=== PATIENT | female | born 1945 | race Caucasian/White ===

== ENCOUNTER 2017-07-10 20:44 | Inpatient (IN) | payer OTHER ==
[2017-07-10] MEDS ORDERED: SODIUM CHLORIDE 0.9% 1L BAG IV* (22:46)
[2017-07-10] MEDS: SOD CHLORIDE 0.9% 500 ML IV (22:56)
[2017-07-10] MEDS: ONDANSETRON 4 MG INJ IV (23:03)
[2017-07-10] MEDS: ACETAMINOPHEN 325 MG TAB PO (23:03)
[2017-07-10 23:08] LABS: ABNORMAL IP MESSAGE 1; HEMATOCRIT 29.7 % (37.0-47.0); HEMOGLOBIN 9.7 g/dl (12.0-16.0); MEAN CORPUSCULAR HEMOGLOBIN 30.6 pg (29.0-33.0); MEAN CORPUSCULAR HGB CONC 32.7 g/dl (32.0-37.0); MEAN CORPUSCULAR VOLUME 93.7 fl (82.0-101.0); MEAN PLATELET VOLUME 9.3 fl (7.4-10.4); RED BLOOD COUNT 3.17 10^6/ul (4.20-5.40); RED CELL DISTRIBUTION WIDTH 15.9 % (11.5-14.5)
[2017-07-10 23:11] LABS: ADD MAN DIFF? YES; PLATELET COUNT 70 10^3/UL (140-415); POSITIVE DIFF @See below
[2017-07-10 23:19] LABS: INR 1.05; PROTIME 13.8 Sec (11.9-14.9); PT RATIO 1.1
[2017-07-10 23:21] LABS: PARTIAL THROMBOPLASTIN TIME 25.7 Sec (25.0-35.0)
[2017-07-10 23:23] LABS: ALANINE AMINOTRANSFERASE 17 IU/L (13-69); ALBUMIN 3.4 g/dl (3.3-4.9); ALBUMIN/GLOBULIN RATIO 0.87; ALKALINE PHOSPHATASE 157 IU/L (42-121); ANION GAP 15 (8-16); ASPARTATE AMINO TRANSFERASE 20 IU/L (15-46); BLOOD UREA NITROGEN 27 mg/dl (7-20); CARBON DIOXIDE 21 mmol/L (21-31); CHLORIDE 103 mmol/L (97-110); CREATININE 1.51 mg/dl (0.44-1.00); GLUCOSE 166 mg/dl (70-220); POTASSIUM 4.3 mmol/L (3.5-5.1); SODIUM 135 mmol/L (135-144); TOTAL PROTEIN 7.3 g/dl (6.1-8.1)
[2017-07-10 23:27] LABS: LACTIC ACID 2.9 mmol/L (0.5-2.0)
[2017-07-10 23:34] LABS: TROPONIN-I 0.031 ng/ml (0.00-0.12)
[2017-07-10 23:56] LABS: B-TYPE NATRIURETIC PEPTIDE 1370 PG/ML (0-125)
[2017-07-11 00:18] LABS: ADD UMIC YES; UR AMORPHOUS CRYSTAL FEW /HPF (NONE SEEN); UR ASCORBIC ACID NEGATIVE (NEGATIVE); UR BACTERIA FEW /HPF (NONE SEEN); UR BILIRUBIN (Dip) 1+ mg/dL (NEGATIVE); UR BLOOD (Dip) NEGATIVE (NEGATIVE); UR CLARITY CLOUDY (CLEAR); UR COLOR AMBER (YELLOW); UR GLUCOSE (Dip) NEGATIVE (NEGATIVE); UR GRANULAR CAST FEW /HPF (NONE SEEN); UR KETONES (Dip) NEGATIVE (NEGATIVE); UR LEUKOCYTE ESTERASE (Dip) 1+ Leu/ul (NEGATIVE); UR MUCUS FEW /HPF (NONE SEEN); UR NITRITE (Dip) NEGATIVE (NEGATIVE); UR RBC 2 /HPF (0-5); UR SPECIFIC GRAVITY (Dip) 1.019 (1.003-1.030); UR SQUAMOUS EPITHELIAL CELL FEW /HPF (FEW); UR TOTAL PROTEIN (Dip) 2+ mg/dl (NEGATIVE); UR UROBILINOGEN (Dip) 2+ mg/dL (NEGATIVE); UR WBC 27 /HPF (0-5)
[2017-07-11 00:21] LABS: BAND NEUTROPHILS #M 4.2 10^3/ul (0.0-0.6); BAND NEUTROPHILS % (M) 28 % (0-4); EOSINOPHILS % (M) 1 % (0-7); LYMPHOCYTES #M 0.7 10^3/ul (0.8-2.9); LYMPHOCYTES % (M) 5 % (15-51); MONOCYTE #M 0.7 10^3/ul (0.3-0.9); MONOCYTES % (M) 5 % (0-11); PLATELET ESTIMATE DECREASED; POLYCHROMASIA 2+ (0-0); REACTIVE LYMPHOCYTES #M 0.1 10^3/ul (0.0-0.0); REACTIVE LYMPHOCYTES% (M) 1 % (0-0); SEG NEUT #M 9.6 10^3/ul (1.6-7.5); SEGMENTED NEUTROPHILS (M) % 60 % (39-77); SMUDGE%M 6 % (0-0)
[2017-07-11 00:49] LABS: LACTIC ACID 1.6 mmol/L (0.5-2.0)
[2017-07-11] MEDS: VANCOMYCIN 1 GM (PMX) 250 ML IVPB (01:30)
[2017-07-11] MEDS: CEFEPIME 1GM/50 ML (PMX) 50 ML IVPB (01:30)
[2017-07-11] MEDS ORDERED: ACETAMINOPHEN 325 MG TAB PO (03:00)
[2017-07-11] MEDS ORDERED: ONDANSETRON 4 MG INJ IV ×2 (03:00→03:30)
[2017-07-11] MEDS ORDERED: NACL 0.9% 3 ML SYG IV (03:30)
[2017-07-11] MEDS ORDERED: BISACODYL (EC) 5 MG TAB PO (03:30)
[2017-07-11] MEDS ORDERED: DOCUSATE SODIUM 100 MG CAP PO (03:30)
[2017-07-11] MEDS: LEVOFLOXACIN 750MG/D5W (PMX) 150 ML IVPB (05:11)
[2017-07-11 06:03] LABS: ADD MAN DIFF? NO
[2017-07-11 06:20] LABS: WHITE BLOOD COUNT 13.1 10^3/ul (4.8-10.8)
[2017-07-11 06:20] LABS: ABNORMAL IP MESSAGE 1; BASOPHIL # 0.1 10^3/ul (0.0-0.1); BASOPHILS % 0.6 % (0.0-2.0); EOSINOPHILS % 0.2 % (0.0-7.0); HEMOGLOBIN 8.1 g/dl (12.0-16.0); LYMPHOCYTES # 0.6 10^3/ul (0.8-2.9); LYMPHOCYTES % 4.6 % (15.0-51.0); MEAN CORPUSCULAR HEMOGLOBIN 30.5 pg (29.0-33.0); MEAN CORPUSCULAR HGB CONC 32.4 g/dl (32.0-37.0); MONOCYTE # 0.9 10^3/ul (0.3-0.9); MONOCYTES % 7.1 % (0.0-11.0); NEUTROPHILS % 84.2 % (39.0-77.0); PLATELET COUNT 77 10^3/UL (140-415); RED BLOOD COUNT 2.66 10^6/ul (4.20-5.40); RED CELL DISTRIBUTION WIDTH 16.1 % (11.5-14.5)
[2017-07-11] MEDS ORDERED: SOD CHLORIDE 0.9% 1,000 ML IV (06:30)
[2017-07-11 06:36] LABS: LACTIC ACID 0.9 mmol/L (0.5-2.0)
[2017-07-11 06:49] LABS: ALANINE AMINOTRANSFERASE 23 IU/L (13-69); ALBUMIN 2.7 g/dl (3.3-4.9); ALBUMIN/GLOBULIN RATIO 0.81; ALKALINE PHOSPHATASE 124 IU/L (42-121); ANION GAP 13 (8-16); ASPARTATE AMINO TRANSFERASE 18 IU/L (15-46); BLOOD UREA NITROGEN 26 mg/dl (7-20); CALCIUM 7.8 mg/dl (8.4-10.2); CARBON DIOXIDE 20 mmol/L (21-31); CHLORIDE 109 mmol/L (97-110); CHOL/HDL RATIO 3.8 RATIO; CHOLESTEROL 118 mg/dl (100-200); CREATININE 1.27 mg/dl (0.44-1.00); GLUCOSE 153 mg/dl (70-220); HDL CHOLESTEROL 31 mg/dl (33-92); LDL CHOLESTEROL,CALCULATED 65 mg/dl; MAGNESIUM 1.5 mg/dl (1.7-2.5); SODIUM 138 mmol/L (135-144); TRIGLYCERIDES 109 mg/dl (0-149)
[2017-07-11 06:55] LABS: MEAN PLATELET VOLUME 11.5 fl (7.4-10.4); POSITIVE DIFF @See below
[2017-07-11] MEDS ORDERED: VANCOMYCIN IV PER PHARMACY XX (07:00)
[2017-07-11] MEDS ORDERED: ALBUMIN HUMAN 25% 100 ML IV (07:00)
[2017-07-11] MEDS: SOD CHLORIDE 0.9% 500 ML IV (07:07)
[2017-07-11] MEDS: ALBUMIN HUMAN 5% 250 ML IV ×2 (07:34→09:03)
[2017-07-11 07:46] LABS: LACTIC ACID 1.2 mmol/L (0.5-2.0)
[2017-07-11 07:47] LABS: THYROID STIMULATING HORMONE 0.946 MIU/L (0.465-4.680)
[2017-07-11 08:45] LABS: TOTAL IRON BINDING CAPACITY 203 ug/dl (241-421)
[2017-07-11 08:58] LABS: % IRON SATURATION 9 % SAT (22-52); IRON 18 ug/dl (35-150)
[2017-07-11 09:10] LABS: D-DIMER > 10000.00 ng/ml (<460)
[2017-07-11 10:24] LABS: HEMOGLOBIN A1C 5.6 % (0-5.9)
[2017-07-11] MEDS: LEVOFLOXACIN 750 MG TABLET PO (10:58)
[2017-07-11] MEDS: ACETAMINOPHEN 325 MG TAB PO (12:32)
[2017-07-11] MEDS ORDERED: VANCOMYCIN 500MG/NS (PMX) 100 ML IVPB (14:00)
[2017-07-11] MEDS: METHYLPREDNISOLONE 40 MG INJ IV (14:02)
[2017-07-11 14:29] LABS: LACTIC ACID 1.3 mmol/L (0.5-2.0)
[2017-07-11] MEDS: ALBUTEROL/IPRATROPIUM (NEB) 3 ML AMP HHN ×2 (14:34→22:21)
[2017-07-11] MEDS: FUROSEMIDE 20 MG INJ IV (18:16)
[2017-07-11 18:35] LABS: LACTIC ACID 2.2 mmol/L (0.5-2.0)
[2017-07-11] MEDS: FERROUS SULFATE (EC) 325 MG TAB PO (21:04)
[2017-07-11] MEDS: SULFASALAZINE 500 MG TAB PO (21:04)
[2017-07-11] MEDS: CALCIUM/VITAMIN D (500/200) TAB PO (21:05)
[2017-07-12 01:24] LABS: TROPONIN-I 0.021 ng/ml (0.00-0.12)
[2017-07-12 05:25] LABS: WHITE BLOOD COUNT 9.7 10^3/ul (4.8-10.8)
[2017-07-12 05:25] LABS: ABNORMAL IP MESSAGE 1; HEMATOCRIT 26.3 % (37.0-47.0); HEMOGLOBIN 8.6 g/dl (12.0-16.0); MEAN CORPUSCULAR HEMOGLOBIN 30.3 pg (29.0-33.0); MEAN CORPUSCULAR HGB CONC 32.7 g/dl (32.0-37.0); MEAN CORPUSCULAR VOLUME 92.6 fl (82.0-101.0); RED BLOOD COUNT 2.84 10^6/ul (4.20-5.40); RED CELL DISTRIBUTION WIDTH 16.2 % (11.5-14.5)
[2017-07-12 05:37] LABS: PLATELET COUNT 38 10^3/UL (140-415); POSITIVE DIFF @See below
[2017-07-12 05:38] LABS: ADD MAN DIFF? YES
[2017-07-12 05:54] LABS: TROPONIN-I 0.019 ng/ml (0.00-0.12)
[2017-07-12 05:57] LABS: ANION GAP 16 (8-16); BLOOD UREA NITROGEN 26 mg/dl (7-20); CALCIUM 9.2 mg/dl (8.4-10.2); CARBON DIOXIDE 20 mmol/L (21-31); CHLORIDE 110 mmol/L (97-110); CREATININE 0.99 mg/dl (0.44-1.00); GLUCOSE 157 mg/dl (70-220); MAGNESIUM 1.6 mg/dl (1.7-2.5); PHOSPHORUS 3.1 mg/dl (2.5-4.9); POTASSIUM 4.5 mmol/L (3.5-5.1); SODIUM 141 mmol/L (135-144)
[2017-07-12 06:02] LABS: CHOLESTEROL 117 mg/dl (100-200)
[2017-07-12 06:02] LABS: CHOL/HDL RATIO 4.1 RATIO; HDL CHOLESTEROL 28 mg/dl (33-92); LDL CHOLESTEROL,CALCULATED 72 mg/dl; TRIGLYCERIDES 86 mg/dl (0-149)
[2017-07-12] MEDS: LEVOTHYROXINE 88 MCG TAB PO (08:30)
[2017-07-12] MEDS: ALBUTEROL/IPRATROPIUM (NEB) 3 ML AMP HHN ×3 (08:55→20:15)
[2017-07-12] MEDS ORDERED: predniSONE 20 MG TAB PO (09:00)
[2017-07-12] MEDS: LEFLUNOMIDE 20 MG TAB PO (09:23)
[2017-07-12] MEDS: CALCIUM/VITAMIN D (500/200) TAB PO ×2 (09:23→22:21)
[2017-07-12] MEDS: LEVOFLOXACIN 750 MG TABLET PO (09:23)
[2017-07-12] MEDS: FERROUS SULFATE (EC) 325 MG TAB PO ×3 (09:23→21:01)
[2017-07-12] MEDS: SULFASALAZINE 500 MG TAB PO ×2 (09:23→21:01)
[2017-07-12] MEDS: predniSONE 20 MG TAB PO (09:27)
[2017-07-12] MEDS ORDERED: AZITHROMYCIN 500MG/NS (PMX) 250 ML IVPB (17:00)
[2017-07-12] MEDS ORDERED: MAGNESIUM SULFATE 2 GM/50 ML 50 ML IVPB (17:00)
[2017-07-12 18:08] LABS: LACTIC ACID 1.8 mmol/L (0.5-2.0)
[2017-07-12] MEDS: MAGNESIUM SULFATE 2 GM/50 ML 50 ML IVPB (18:14)
[2017-07-12 20:45] LABS: LACTIC ACID 1.5 mmol/L (0.5-2.0)
[2017-07-12] MEDS: CEFEPIME 1GM/50 ML (PMX) 50 ML IVPB (21:01)
[2017-07-12] MEDS: ACETAMINOPHEN 325 MG TAB PO (23:07)
[2017-07-13 01:42] LABS: LACTIC ACID 1.1 mmol/L (0.5-2.0)
[2017-07-13 05:12] LABS: ADD MAN DIFF? NO
[2017-07-13 05:17] LABS: HEMATOCRIT 24.8 % (37.0-47.0); HEMOGLOBIN 8.2 g/dl (12.0-16.0); MEAN CORPUSCULAR HEMOGLOBIN 30.3 pg (29.0-33.0); MEAN CORPUSCULAR VOLUME 91.5 fl (82.0-101.0); RED BLOOD COUNT 2.71 10^6/ul (4.20-5.40)
[2017-07-13 05:17] LABS: WHITE BLOOD COUNT 12.1 10^3/ul (4.8-10.8)
[2017-07-13 05:18] LABS: ABNORMAL IP MESSAGE 1; BASOPHILS % 0.2 % (0.0-2.0); EOSINOPHILS # 0.1 10^3/ul (0.0-0.5); EOSINOPHILS % 0.4 % (0.0-7.0); LYMPHOCYTES # 0.9 10^3/ul (0.8-2.9); LYMPHOCYTES % 7.5 % (15.0-51.0); MEAN CORPUSCULAR HGB CONC 33.1 g/dl (32.0-37.0); MEAN PLATELET VOLUME 10.4 fl (7.4-10.4); MONOCYTE # 0.7 10^3/ul (0.3-0.9); MONOCYTES % 5.4 % (0.0-11.0); NEUTROPHIL # 10.3 10^3/ul (1.6-7.5); NEUTROPHILS % 85.6 % (39.0-77.0); RED CELL DISTRIBUTION WIDTH 16.3 % (11.5-14.5)
[2017-07-13 05:30] LABS: ANION GAP 12 (8-16); BLOOD UREA NITROGEN 34 mg/dl (7-20); CALCIUM 9.7 mg/dl (8.4-10.2); CARBON DIOXIDE 22 mmol/L (21-31); CHLORIDE 111 mmol/L (97-110); CREATININE 1.21 mg/dl (0.44-1.00); GLUCOSE 101 mg/dl (70-220); PLATELET COUNT 56 10^3/UL (140-415); POSITIVE DIFF @See below; POTASSIUM 4.1 mmol/L (3.5-5.1); SODIUM 141 mmol/L (135-144)
[2017-07-13 05:31] LABS: MAGNESIUM 2.1 mg/dl (1.7-2.5)
[2017-07-13 05:31] LABS: PHOSPHORUS 3.3 mg/dl (2.5-4.9)
[2017-07-13] MEDS: LEVOTHYROXINE 88 MCG TAB PO (07:21)
[2017-07-13] MEDS: ALBUTEROL/IPRATROPIUM (NEB) 3 ML AMP HHN ×3 (08:08→20:28)
[2017-07-13 09:12] LABS: BAND NEUTROPHILS #M 1.6 10^3/ul (0.0-0.6); BAND NEUTROPHILS % (M) 14 % (0-4); GIANT THROMBO% (M) 1 % (0-0); LYMPHOCYTES % (M) 9 % (15-51); MONOCYTE #M 0.8 10^3/ul (0.3-0.9); MONOCYTES % (M) 7 % (0-11); PLATELET ESTIMATE SIG DECREASED; POIKILOCYTOSIS 2+ (0-0); POLYCHROMASIA 3+ (0-0); SEG NEUT #M 8.7 10^3/ul (1.6-7.5); SEGMENTED NEUTROPHILS (M) % 70 % (39-77); SMUDGE%M 3 % (0-0)
[2017-07-13 09:19] LABS: LACTIC ACID 1.4 mmol/L (0.5-2.0)
[2017-07-13] MEDS: CEFEPIME 1GM/50 ML (PMX) 50 ML IVPB ×2 (09:20→20:52)
[2017-07-13] MEDS: LEFLUNOMIDE 10 MG TAB PO (09:21)
[2017-07-13] MEDS: predniSONE 20 MG TAB PO (09:21)
[2017-07-13] MEDS: FERROUS SULFATE (EC) 325 MG TAB PO ×3 (09:21→20:51)
[2017-07-13] MEDS: CALCIUM/VITAMIN D (500/200) TAB PO ×2 (09:21→22:15)
[2017-07-13] MEDS: SULFASALAZINE 500 MG TAB PO ×2 (09:21→20:51)
[2017-07-13 12:06] LABS: NIL 0.03 IU/mL; QUANTIFERON(R)-TB GOLD INDETERMINATE (NEGATIVE); TB-NIL 0.01 IU/mL
[2017-07-13 15:35] LABS: LACTIC ACID 2.7 mmol/L (0.5-2.0)
[2017-07-13] MEDS: SOD CHLORIDE 0.45% 1,000 ML IV (16:02)
[2017-07-13 16:31] LABS: MYCOPLASMA PNEUMONIAE AB (IGG) < OR = 0.90
[2017-07-13 18:06] LABS: LACTIC ACID 1.7 mmol/L (0.5-2.0)
[2017-07-13 20:50] LABS: LACTIC ACID 1.5 mmol/L (0.5-2.0)
[2017-07-14 01:43] LABS: LACTIC ACID 1.5 mmol/L (0.5-2.0)
[2017-07-14] MEDS ORDERED: LEVOFLOXACIN 750MG/D5W (PMX) 150 ML IVPB (06:00)
[2017-07-14] MEDS: LEVOTHYROXINE 88 MCG TAB PO (06:11)
[2017-07-14] MEDS: SOD CHLORIDE 0.45% 1,000 ML IV ×2 (06:11→17:40)
[2017-07-14] MEDS: ALBUTEROL/IPRATROPIUM (NEB) 3 ML AMP HHN ×3 (07:55→21:17)
[2017-07-14] MEDS: CEFEPIME 1GM/50 ML (PMX) 50 ML IVPB ×2 (08:49→20:29)
[2017-07-14] MEDS: SULFASALAZINE 500 MG TAB PO ×2 (08:49→20:29)
[2017-07-14] MEDS: FERROUS SULFATE (EC) 325 MG TAB PO ×3 (08:49→20:29)
[2017-07-14] MEDS: predniSONE 20 MG TAB PO (08:49)
[2017-07-14] MEDS: CALCIUM/VITAMIN D (500/200) TAB PO ×2 (08:49→20:29)
[2017-07-14] MEDS: LEFLUNOMIDE 10 MG TAB PO ×2 (08:54→10:40)
[2017-07-14 09:51] LABS: ADD MAN DIFF? NO
[2017-07-14 10:05] LABS: WHITE BLOOD COUNT 6.6 10^3/ul (4.8-10.8)
[2017-07-14 10:05] LABS: ABNORMAL IP MESSAGE 1; BASOPHILS % 0.3 % (0.0-2.0); EOSINOPHILS # 0.1 10^3/ul (0.0-0.5); EOSINOPHILS % 1.5 % (0.0-7.0); HEMATOCRIT 27.4 % (37.0-47.0); HEMOGLOBIN 9.2 g/dl (12.0-16.0); LYMPHOCYTES % 14.9 % (15.0-51.0); MEAN CORPUSCULAR HEMOGLOBIN 30.7 pg (29.0-33.0); MEAN CORPUSCULAR HGB CONC 33.6 g/dl (32.0-37.0); MEAN CORPUSCULAR VOLUME 91.3 fl (82.0-101.0); MEAN PLATELET VOLUME 12.8 fl (7.4-10.4); MONOCYTE # 0.6 10^3/ul (0.3-0.9); MONOCYTES % 8.5 % (0.0-11.0); NEUTROPHIL # 4.8 10^3/ul (1.6-7.5); NEUTROPHILS % 73.1 % (39.0-77.0); PLATELET COUNT 63 10^3/UL (140-415); RED CELL DISTRIBUTION WIDTH 16.2 % (11.5-14.5)
[2017-07-14 10:06] LABS: POSITIVE DIFF @See below
[2017-07-14 10:16] LABS: LACTIC ACID 0.8 mmol/L (0.5-2.0)
[2017-07-14 10:23] LABS: ANION GAP 12 (8-16); BLOOD UREA NITROGEN 21 mg/dl (7-20); CALCIUM 9.6 mg/dl (8.4-10.2); CARBON DIOXIDE 23 mmol/L (21-31); CHLORIDE 110 mmol/L (97-110); CREATININE 0.88 mg/dl (0.44-1.00); GLUCOSE 72 mg/dl (70-220); POTASSIUM 4.2 mmol/L (3.5-5.1); SODIUM 141 mmol/L (135-144)
[2017-07-14 10:51] LABS: LACTIC ACID 1.2 mmol/L (0.5-2.0)
[2017-07-14] MEDS ORDERED: GUAIFENESIN 20 MG/ML 5ML CUP PO (15:00)
[2017-07-14 15:37] LABS: LACTIC ACID 2.1 mmol/L (0.5-2.0)
[2017-07-14] MEDS: LOSARTAN 25 MG TAB PO (20:28)
[2017-07-15] MEDS: LEVOTHYROXINE 88 MCG TAB PO (06:03)
[2017-07-15] MEDS: ALBUTEROL/IPRATROPIUM (NEB) 3 ML AMP HHN (07:42)
[2017-07-15 09:04] LABS: ADD MAN DIFF? NO
[2017-07-15 09:09] LABS: ABNORMAL IP MESSAGE 1; BASOPHILS % 0.6 % (0.0-2.0); EOSINOPHILS # 0.2 10^3/ul (0.0-0.5); HEMATOCRIT 29.1 % (37.0-47.0); HEMOGLOBIN 9.4 g/dl (12.0-16.0); LYMPHOCYTES # 1.3 10^3/ul (0.8-2.9); LYMPHOCYTES % 21.3 % (15.0-51.0); MEAN CORPUSCULAR HEMOGLOBIN 29.8 pg (29.0-33.0); MEAN CORPUSCULAR HGB CONC 32.3 g/dl (32.0-37.0); MEAN CORPUSCULAR VOLUME 92.4 fl (82.0-101.0); MEAN PLATELET VOLUME 10.8 fl (7.4-10.4); MONOCYTE # 0.7 10^3/ul (0.3-0.9); MONOCYTES % 10.4 % (0.0-11.0); NEUTROPHIL # 3.8 10^3/ul (1.6-7.5); NEUTROPHILS % 60.6 % (39.0-77.0); RED BLOOD COUNT 3.15 10^6/ul (4.20-5.40); RED CELL DISTRIBUTION WIDTH 16.3 % (11.5-14.5)
[2017-07-15 09:09] LABS: WHITE BLOOD COUNT 6.3 10^3/ul (4.8-10.8)
[2017-07-15 09:18] LABS: POSITIVE DIFF @See below
[2017-07-15 09:19] LABS: PLATELET COUNT 46 10^3/UL (140-415)
[2017-07-15] MEDS: SOD CHLORIDE 0.45% 1,000 ML IV (09:32)
[2017-07-15] MEDS: CEFEPIME 1GM/50 ML (PMX) 50 ML IVPB (09:33)
[2017-07-15] MEDS: FERROUS SULFATE (EC) 325 MG TAB PO ×2 (09:34→13:02)
[2017-07-15] MEDS: predniSONE 20 MG TAB PO (09:34)
[2017-07-15] MEDS: CALCIUM/VITAMIN D (500/200) TAB PO (09:34)
[2017-07-15] MEDS: LOSARTAN 25 MG TAB PO (09:34)
[2017-07-15] MEDS: SULFASALAZINE 500 MG TAB PO (09:34)
[2017-07-15] MEDS: LEFLUNOMIDE 10 MG TAB PO (09:34)
[2017-07-15 09:36] LABS: ANION GAP 12 (8-16); BLOOD UREA NITROGEN 20 mg/dl (7-20); CALCIUM 9.8 mg/dl (8.4-10.2); CARBON DIOXIDE 25 mmol/L (21-31); CHLORIDE 109 mmol/L (97-110); CREATININE 0.85 mg/dl (0.44-1.00); GLUCOSE 72 mg/dl (70-220); POTASSIUM 4.3 mmol/L (3.5-5.1); SODIUM 142 mmol/L (135-144)
== END 2017-07-15 16:40 | disposition home or self-care (01) | DRG 291 ==
LOC: E/R 20:44 → MS4 07-14 00:14 → MS3 07-11 20:36
DX: I13.0 Hypertensive heart and chronic kidney disease with heart failure and stage 1 through stage 4 chronic kidney disease, or unspecified chronic kidney disease (principal); I50.23 Acute on chronic systolic (congestive) heart failure; N17.9 Acute kidney failure, unspecified; J18.9 Pneumonia, unspecified organism; J47.0 Bronchiectasis with acute lower respiratory infection; D69.6 Thrombocytopenia, unspecified; J84.10 Pulmonary fibrosis, unspecified; E78.5 Hyperlipidemia, unspecified; E03.9 Hypothyroidism, unspecified; M06.9 Rheumatoid arthritis, unspecified; N18.9 Chronic kidney disease, unspecified; D50.9 Iron deficiency anemia, unspecified; J06.9 Acute upper respiratory infection, unspecified; R00.0 Tachycardia, unspecified; J20.9 Acute bronchitis, unspecified; Z87.891 Personal history of nicotine dependence
CPT/HCPCS: 36415; 71045; 71250; 80048; 80053; 80061; 81001; 83036; 83540; 83605; 83735; 83880; 84100; 84443; 84484; 85025; 85378; 85610; 85730; 86480; 86738; 87040; 87086; 87116; 87275; 87276; 87279; 87280; 87400; 87556; 93005; 93306; 93880; 94640; 94664; 96374; 96375; 96376; 99291-25; J1940